=== PATIENT | female | born 1945 | race Caucasian/White ===

== ENCOUNTER → 2016-08-29 | Outpatient (CLI) | payer OTHER | LOC: MMPC 11:11 | DX: F41.9 Anxiety disorder, unspecified (principal); K58.9 Irritable bowel syndrome, unspecified; E03.9 Hypothyroidism, unspecified; K21.9 Gastro-esophageal reflux disease without esophagitis; M81.0 Age-related osteoporosis without current pathological fracture; E78.5 Hyperlipidemia, unspecified | CPT/HCPCS: 99213; G0463 ==

== ENCOUNTER 2016-11-05 18:17 | Emergency (ER) | payer OTHER ==
[2016-11-05 18:34] VITALS: RESP 18; TEMP 98.1
[2016-11-05] MEDS ORDERED: NORMAL SALINE 10 ML SYRINGE FLUSH IVP PRN (18:45)
[2016-11-05] MEDS ORDERED: Sodium Chloride 0.9% 1,000 ML PRIMARY IV ONE (18:45)
[2016-11-05 18:54] LABS: BILIRUBIN,URINE NEGATIVE (NEG); CLARITY,URINE TURBID (CLEAR); COLOR,URINE RED; GLUCOSE, URINE (UA) NEGATIVE (NEG); NITRATE,URINE NEGATIVE (NEG); OCCULT BLOOD,URINE LARGE (NEG); PH,URINE 5.5 (5.0-8.5); PROTEIN,URINE >300 mg/dl (NEG); URINE SAMPLE TYPE VOIDED SPECIMEN; UROBILINOGEN,URINE 0.2 EU/dL (0.2)
[2016-11-05 18:55] LABS: BACTERIA,URINE MANY; RBC,URINE >100 /hpf; SQUAMOUS EPITHELIAL CELL,UR RARE
[2016-11-05 19:02] LABS: BASOPHILS # (AUTO) 0.02 10*3/UL; BASOPHILS % (AUTO) 0.3 % (0-1); EOSINOPHILS % (AUTO) 1.3 % (0-8); HEMATOCRIT 38.2 % (37.0-47.0); LYMPHOCYTES # (AUTO) 2.07 10*3/uL; MEAN CORPUSCULAR HEMOGLOBIN 31.5 PG (27-31); MEAN PLATELET VOLUME 9.8 FL (7.4-12.2); MONOCYTES # (AUTO) 0.53 10*3/UL (0.3-0.8); MONOCYTES % (AUTO) 6.6 % (5-15); NEUTROPHILS # (AUTO) 5.26 10*3/UL; NEUTROPHILS % (AUTO) 65.6 % (50-80); RED BLOOD COUNT 4.13 10^6/uL (4.20-5.40)
[2016-11-05 19:06] LABS: PLATELET MORPHOLOGY COMMENT NORMAL MORPHOLOGY (NORM); RBC MORPHOLOGY COMMENT NORMAL MORPHOLOGY (NORM); WBC MORPHOLOGY COMMENT NORMAL MORPHOLOGY (NORM)
[2016-11-05 19:11] LABS: CALCIUM 9.1 mg/dL (8.7-10.7); SERUM ALBUMIN 4.2 g/dL (3.5-4.8)
--- NOTE | 2016-11-05 20:19 | DI ---
CT ABDOMEN SCAN WITH IV CONTRAST, 11/05/2016 6:46 PM : Clinical History: Abdominal pain. Hematuria. Previous Exam: 02/13/2016. Scans are performed from the lower lung bases through the liver and kidneys with IV contrast. 70 ml o f Isovue 300 was injected IV. No oral or rectal contrast was ordered. The lung bases are clear. There is fatty infiltration of the liver. The patient is status post cholec ystectomy. The spleen and pancreas are normal. The left adrenal gland has 2 small 10 mm nodules that were present on the previous exam and have not changed. The right adrenal gland is unchanged in size and overall appearance. Portions of the upper part of the right adrenal gland are calcified. The bulk of the tissue is of fat density indicating this is a lipid rich tumor and most likely benign. This l esion measures 20 x 30 x 31 mm and this represents the identical measurements obtained on the previou s study. Both kidneys are normal in size, shape, position and contour. There is no hydronephrosis or hydroureter. No left renal or ureteral calculi are present. There is a 2-3 mm nonobstructing calculus in the a lower pole calyx of the right kidney and this has not changed. There is no right ureteral c alculus. There are no abnormal retrocrural or periaortic nodes. No ascites is present. READIN. There is a nonobstructing 2-3 mm calculus in a lower pole calyx of the right kidney, unchanged fr om the previous study. There is no left renal calculus or calculi in either ureter. No hydronephrosis or hydroureter is present. 2. 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 3. Fatty infiltration of the liver. CT PELVIS SCAN WITH IV CONTRAST, 11/05/2016 6:46 PM: Clinical History: See above. Previous Exam: 02/13/2016. Scans are performed from just superior to the umbilicus to the symphysis pubis with IV contrast. This is the same bolus of contrast used for the CT scans of the abdomen. Scans through the lower abdomen and pelvis show no masses or abnormal fluid collections. There is no adenopathy. The appendix is normal and it is in a retrocecal position. The small bowel, terminal ileu m, and ileocecal valve are normal. The colon is also normal. There are no hernias. The uterus and the left ovary are atrophic but normal. The right ovary has a cystic lesion measuring about 20 mm in edel meter and this was present on the previous study and has not changed. READING: There is a 20 mm cystic lesion of the right ovary, most likely an ovarian cyst. It has not changed. T he remainder of the study is normal.
[2016-11-05] MEDS ORDERED: CIPROFLOXACIN 500 MG TABLET PO ONE (20:32)
--- NOTE | 2016-11-05 21:45 | PDOC ---
Female Problem HPI - General Chief Complaint: Genitourinary Complaint Stated Complaint: Urine Concerns Date Seen by Provider: 11/05/16 Time Seen by Provider: 18:35 Source: POSITIVE: Patient Exam Limitations: POSITIVE: No limitations Nurse's Notes Reviewed & Considered: Yes - History of Present Illness Initial Comments: The patient is a 71-year-old female. She states that this afternoon she developed hematuria along with some associated urinary urgency and frequency. She also has a vague discomfort in the left lower abdomen. No fevers or chills. No back pain. No nausea, vomiting, diarrhea, melena. No known bleeding disorders. Patient states she was diagnosed with breast cancer in 1990. She's had a cholecystectomy and hernia repair Body Location Affected: REPORTS: Other (Hematuria) Timing: REPORTS: Abrupt Duration: 4-6 hours Severity: Moderate Quality: REPORTS: Other (Urinary frequency and urgency; some vague discomfort left lower abdomen) Context: DENIES: Frequent Bathing, Poor Hygiene, Frequent Netarts, Known STD Exposure, Unknown STD Exposure, Possible STD Exposure, Multiple Partners, Known , Recent Vaginal Delivery, Recent Delivery, Recent Miscarriage, Recent Trauma, Recent Surgery, Other Location of Pain: DENIES: Right, Left, Breast Pain, Abdominal Pain, Pelvic Pain , Pelvic Cramping, Pelvic Pressure, Burning, Sharp, Vulvar Pain, Vaginal Pain, Low Back Pain, Flank Pain, Shoulder Pain Vaginal Bleeding: DENIES: Abnormal Bleeding, More Severe Than Periods, Heavier Than Periods, Similar to Periods, County Supervisor Than Periods, Spotting, Passing Clots , Passing Tissue, Other : REPORTS: Post-Menopausal Urinary Symptoms: REPORTS: Blood in Urine (Gross hematuria), Discomfort w/ Urination Discharge: DENIES: Vaginal Discharge, Vag Fluid Leak- , Breast Discharge, Other Similar Symptoms Previously: No Recent Care Received: REPORTS: Denies Any Prior Injuries Related to Current Complaint?: Yes - Patient Home Medications Home Medications: Home Medications Multivitamin [Daily Vitamin] 1 tab ORAL QD tab 06/15/13 Levothyroxine Sodium 1 tab ORAL QD #90 tab 08/22/15 Atorvastatin Calcium [Lipitor] 1 tab PO QD #90 tab 01/18/16 Cholecalciferol (Vitamin D3) [Vitamin D3] 1 cap PO QD #30 cap 03/04/16 Pantoprazole Sodium 1 tab PO QD #30 tab 12/05/16 Ciprofloxacin/Ciprofloxa HCl [Ciprofloxacin Er 500 Mg Tablet] 500 mg PO Q12H # 19 tbmp.24hr 11/05/16 Simethicone [Gas-X] 80 mg PO PRN 11/05/16 - Patient Allergies Allergies/Adverse Reactions: Allergies Allergy/AdvReac Type Severity Reaction Status Date / Time oxycodone Allergy Severe HIVES Verified 11/05/16 18:31 hydrocodone AdvReac Severe Abdominal Verified 11/05/16 18:31 pain, vomiting codeine AdvReac Intermediate NAUSEA Verified 11/05/16 18:31 Past Medical History - heen HEENT History: Other (please comment) Additional HEENT History: LEFT EYE HAS FLOATERS. 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 Cardiovascular History: Hyperlipidemia Respiratory History: Denies History Gastrointestinal History: GERD, Irritable Bowel Syndrome Genitourinary History: Denies History Endocrine History: Hypothyroidism Musculoskeletal History: Osteoporosis, Back Pain Prosthesis or Implant: No Neurological History: Denies History Blood Disorders: Denies History Psychiatric History: OCD History of Sexually Transmitted Diseases: No Female Reproductive History: Denies History Obstetrical History: Denies History Cancer History: Breast Cancer Treatment / Date(s) of Treatment: BREAST CA 1990/DOUBLE MASTECTOMY WITH CHEMO X 6 MONTHS In Past Year Been Physically Harmed or Verbally Threatened: No History of MDRO: No History of Other Communicable Diseases: No Tobacco Use: Never Smoker Alcohol Use: None Substance Use Type: None Previous Surgical History: Yes Type / Date of Surgery: LIPOMA EXCISED RIGHT SHOULDER/ TONY/ RIGHT INGUINAL HERNIA/ BILAT RADICAL MASTECTOMY/ RIGHT KNEE SCOPE X 2/ BILAT HAMMER TOES/ TUBAL / L 5th TOE AMPUTATED Anesthesia Reactions: No Malignant Hyperthermia: No Significant Family History: Heart disease, Cancer, Diabetes, Hypertension Past Medical History Reviewed: Reviewed - No Changes ROS - Limitations ROS Limitations: No Limitations Constitution: REPORTS: Denies Symptoms Cardiovascular: REPORTS: Denies Cardiac Symptoms Respiratory: REPORTS: Denies Resp Symptoms Neurological: REPORTS: Denies Neuro Symptoms Gastrointestinal: REPORTS: Denies GI Symptoms Endocrine: REPORTS: Denies Symptoms Musculoskeletal: REPORTS: Denies MS Symptoms Genitourinary: REPORTS: Hematuria Eyes: REPORTS: Denies Symptoms ENT: REPORTS: Denies Symptoms Skin: REPORTS: Denies Skin Symptoms Lympathic: REPORTS: Denies Lympathic Symptoms Immunologic: POSITIVE: Denies Symptoms Psychiatric: POSITIVE: Denies Psych Symptoms Female Genitourinary Exam - General Appearance General Appearance: POSITIVE: Alert, Cooperative, No Acute Distress, No Evidence of Trauma - Neck Neck: POSITIVE: Normal Inspection, No Apparent Injury - Respiratory Respiratory: POSITIVE: No Respiratory Distress, Breath Sounds Normal, Chest Non- Tender - Cardiovascular Cardiovascular: POSITIVE: Regular Rate and Rhythm, Heart Sounds Normal, Equal Pulses, Strong Pulses Peripheral Pulses: Radial (R): 2+, Radial (L): 2+ - Abdomen Abdomen: POSITIVE: Soft, Normal Bowel Sounds, Non-Tender, No Distention, No Organomegaly - Back Back: POSITIVE: Normal Inspection. 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 Lab Results Reviewed: Yes Lab Results:: Laboratory Results 11/05/16 11/05/16 11/05/16 Range/Units 18:54 18:59 19:15 WBC 8.00 (4.8-10.8) 10^3/uL RBC 4.13 L (4.20-5.40) 10^6/uL Hgb 13.0 (12.0-16.0) g/dL Hct 38.2 (37.0-47.0) % MCV 92.5 (81-99) FL MCH 31.5 H (27-31) PG MCHC 34.0 (33-37) g/dL RDW Std Deviation 42.3 (39-50) fL RDW Coeff of Diana 12.9 (11.5-14.5) % Plt Count 246 (140-350) 10*3/uL MPV 9.8 (7.4-12.2) FL Immature Gran % (Auto) 0.3 (0-5) % Neut % (Auto) 65.6 (50-80) % Lymph % (Auto) 25.9 (10-50) % [place] % (Auto) 6.6 (5-15) % Eos % (Auto) 1.3 (0-8) % Baso % (Auto) 0.3 (0-1) % Immature Gran # (Auto) 0.02 10*3/UL Neut # (Auto) 5.26 10*3/UL Lymph # (Auto) 2.07 10*3/uL [place] # (Auto) 0.53 (0.3-0.8) 10*3/UL Eos # (Auto) 0.10 10*3/UL Baso # (Auto) 0.02 10*3/UL WBC Morphology Comment Normal morphology (NORM) Plt Morphology Comment Normal morphology (NORM) RBC Morph Comment Normal morphology (NORM) PT 10.0 (9.7-11.4) secs INR 0.97 (0.00-5.90) N/A APTT 24.3 (22.6-31.3) SECS Sodium 142 (135-145) meq/L Potassium 3.5 L (3.8-5.2) meq/L Chloride 107 (98-112) meq/L Carbon Dioxide 24 (23-33) meq/L Anion Gap 11 (5-20) BUN 18 (7-22) mg/dL Creatinine 1.0 (0.50-1.20) mg/dL Estimated GFR 55 (>60 ml/min/1.73m(2)) BUN/Creatinine Ratio 18.00 (6-20) Glucose 119 H (78-110) mg/dL Calculated Osmolality 296.0 H (267-292) mOsm/kg Calcium 9.1 (8.7-10.7) mg/dL Total Bilirubin 0.5 (0.3-1.2) mg/dL AST 25 (8-39) IU/L ALT 39 (9-52) IU/L Alkaline Phosphatase 93 (38-126) IU/L Total Protein 7.2 (6.1-8.0) g/dL Albumin 4.2 (3.5-4.8) g/dL Globulin 3.0 (2.50-4.10) g/dL Albumin/Globulin Ratio 1.40 (1.3-2.0) mg/g Ur Collection Type Voided specimen Urine Color Red Urine Clarity Turbid (CLEAR) Urine pH 5.5 (5.0-8.5) Ur Specific Reading 1.025 (1.005-1.030) Urine Protein >300 (NEG) mg/dl Urine Glucose (UA) Negative (NEG) mg/dL Urine Ketones Trace (NEG) Urine Occult Blood Large H (NEG) Urine Nitrate Negative (NEG) Urine Bilirubin Negative (NEG) Urine Urobilinogen 0.2 (0.2) EU/dL Ur Leukocyte Esterase Negative (NEG) Urine RBC >100 (NONE) /hpf Urine WBC None (NONE) Ur Squamous Epith Cells Rare (NONE) Ur Renal Epithelial Cell None (NONE) Urine Crystals None Urine Bacteria Many (NONE) Urine Casts None (NONE) Urine Mucus None (NONE) Urine Trichomonas None (NONE) Urine Yeast None (NONE) Ur Culture Indicated? Culture set - Patient's Progress Pain Medication Addressed: POSITIVE: Not Applicable School/Work Release Addressed: POSITIVE: Not Applicable Re-Examine Time: 20:20 Status: POSITIVE: Unchanged, Re-Examined - Consult Counseled: POSITIVE: Patient, Family (), RE: Lab Results, RE: Radiology Results, RE: DX, RE: Need for F/U Patient Care Time - Estimated PCT Patient Care Time (In Minutes): 50 Vital Signs - Recent Vital Signs Vital Signs: Vital Signs (Last 8 hours) Temp Pulse Resp BP Pulse Ox 11/05/16 18:17 98.1 F 89 18 150/104 94 - VS Reviewed Vital Signs Reviewed: Yes Discharge Clinical Impression: Hematuria Discharge Disposition: Discharged to Home Condition: Stable Prescriptions / Orders: Ciprofloxacin/Ciprofloxa HCl [Ciprofloxacin Er 500 Mg Tablet] 500 mg PO Q12H # 19 tbmp.24hr Patient Instructions Given at Discharge: Hematuria (ED) Additional Instructions: I am not completely sure why you are having blood in your urine. CT scan of your abdomen and pelvis showed no stones or kidney abnormalities. You may have a urinary tract infection causing blood in your urine, however, your urinalysis shows no white blood cells, and only red blood cells. Therefore, we must consider other sources. My main concern is that you might have a bladder tumor , causing your bloody urine. Please take Cipro, one every 12 hours, at least until the blood cultures are returned, which will cover you for bladder infections. Please follow-up with Dr. Cortez, within the next few days and he will probably want you to see a urologist to have a cystoscopy, which is a procedure where a urologist uses nystatin treatment to actually look inside the bladder to look for lesions. Return here anytime if condition worsens. Increase fluids. Follow Up With: NONE,NONE [Primary Care Provider] - (Follow-up with Dr. Cortez for probable urological consultation. Instructions and medications as above. Return here as necessary.)
== END 2016-11-05 21:00 | disposition home or self-care (01) ==
LOC: ER 18:17
DX: R31.9 Hematuria, unspecified (principal); R10.32 Left lower quadrant pain
CPT/HCPCS: 74177; 80053; 81001; 81003; 85025; 85610; 85730; 87088; 99283

== ENCOUNTER 2016-11-09 19:45 | Emergency (ER) | payer OTHER ==
[2016-11-09] MEDS ORDERED: Sodium Chloride 0.9% 1,000 ML PRIMARY IV ONE (20:14)
[2016-11-09] MEDS ORDERED: HYDROmorphone 2 MG/1 ML IVP ONE (20:14)
[2016-11-09] MEDS ORDERED: NORMAL SALINE 10 ML SYRINGE FLUSH IVP PRN (20:14)
[2016-11-09 20:45] LABS: BILIRUBIN,URINE SMALL (NEG); CLARITY,URINE CLOUDY (CLEAR); COLOR,URINE RED; GLUCOSE, URINE (UA) NEGATIVE (NEG); NITRATE,URINE NEGATIVE (NEG); OCCULT BLOOD,URINE LARGE (NEG); PH,URINE 5.5 (5.0-8.5); PROTEIN,URINE 100 mg/dl (NEG); URINE SAMPLE TYPE CLEAN CATCH URINE; UROBILINOGEN,URINE 0.2 EU/dL (0.2)
[2016-11-09 20:46] LABS: BASOPHILS # (AUTO) 0.02 10*3/UL; BASOPHILS % (AUTO) 0.3 % (0-1); EOSINOPHILS % (AUTO) 2.6 % (0-8); HEMATOCRIT 35.9 % (37.0-47.0); HEMOGLOBIN 12.3 g/dL (12.0-16.0); LYMPHOCYTES # (AUTO) 1.96 10*3/uL; MEAN CORPUSCULAR HEMOGLOBIN 31.5 PG (27-31); MEAN CORPUSCULAR HGB CONC 34.3 g/dL (33-37); MONOCYTES # (AUTO) 0.64 10*3/UL (0.3-0.8); MONOCYTES % (AUTO) 8.3 % (5-15); NEUTROPHILS # (AUTO) 4.87 10*3/UL; NEUTROPHILS % (AUTO) 63.1 % (50-80); PLATELET MORPHOLOGY COMMENT NORMAL MORPHOLOGY (NORM); RBC MORPHOLOGY COMMENT NORMAL MORPHOLOGY (NORM); RED BLOOD COUNT 3.91 10^6/uL (4.20-5.40); WBC MORPHOLOGY COMMENT NORMAL MORPHOLOGY (NORM)
[2016-11-09 20:53] LABS: BUN/CREATININE RATIO 13.33 (6-20); CALCIUM 8.9 mg/dL (8.7-10.7)
[2016-11-09 20:54] LABS: BACTERIA,URINE FEW; RBC,URINE >100 /hpf; WBC,URINE 0-1
[2016-11-09 20:55] LABS: URINE CRYSTALS MODERATE
[2016-11-09 21:22] VITALS: TEMP 98.6
[2016-11-09] MEDS ORDERED: ONDANSETRON 4 MG/2 ML VIAL ONE (21:26)
[2016-11-09] MEDS: ONDANSETRON 4 MG/2 ML VIAL IVP ONE ×2 (21:30→22:14)
[2016-11-09 21:57] VITALS: RESP 22
--- NOTE | 2016-11-09 22:16 | DI ---
HISTORY: Left lower abdominal pain. COMPARISON STUDIES: 11/05/16. TECHNIQUE: Contiguous 3 mm axial images were obtained from the upper abdomen through the pelvis witho ut contrast. 391 images. FINDINGS: LUNG BASE: There is mild bilateral dependent atelectasis. No evidence of mass or airspace consolidati on. No pleural effusions. Coronary artery calcifications present. ABDOMEN: The liver and spleen are unremarkable. No liver masses seen. The gallbladder is absent. Garrett creas and left adrenal gland appear normal. The right adrenal gland is unchanged from prior, enlarged with multiple calcifications. Normal appearing small bowel. A few scattered colonic diverticula noted. No pericolonic or small bow el mesenteric inflammatory fat stranding. No secondary signs of appendicitis. No evidence of pneumope ritoneum, free fluid or of peritoneal abscess. Multiple renal lesions better evaluated on the comparison CT, some of which are too small to adequate ly characterize, likely representing simple renal cysts, though incompletely evaluated on this study. There is a tiny 4 mm distal left ureterolith, with mild asymmetric enlargement of the left ureter. The ureterolith has slightly advanced further along the ureter compared to the prior study from . No perinephric stranding or enlargement of the proximal collecting system. The right and left kid mere are otherwise unremarkable. PELVIS: No suspicious pelvic or abdominal adenopathy. VESSELS: Moderate aortoiliac atherosclerotic vascular disease is present without evidence of aneurysm al dilation. MUSCULOSKELETAL: Bone mineralization is adequate. No evidence of acute fracture or spinal canal sten osis. IMPRESSION: 1. Tiny 4 mm distal left ureterolith, just above the UVJ, with minimal asymmetric enlargement of the left ureter and no other signs of obstructive uropathy. 2. Multiple renal lesions better evaluated on the comparison CT, some of which are too small to adequ ately characterize, though likely representing simple renal cysts. Consider routine renal US if persi stent clinical concern. NOTE: The above findings were discussed with Dr. Strange at approximately 7 pm HST. The finding of th e ureterolith was not initially included in the original report and was noticed after further history was obtained regarding the patient's hematuria.
[2016-11-09] MEDS ORDERED: LORazepam 2 MG/1 ML VIAL IVP ONE (22:53)
--- NOTE | 2016-11-09 23:27 | PDOC ---
Abdomen/Flank HPI - General Chief Complaint: Abdomen Pain Stated Complaint: LEFT LOWER ABD. PAIN Date Seen by Provider: 11/09/16 Time Seen by Provider: 20:13 Source: POSITIVE: Patient, Spouse, Old records Exam Limitations: POSITIVE: No limitations Nurse's Notes Reviewed & Considered: Yes - History of Present Illness Initial Comments: Patient is a 71-year-old female. She was seen by myself in the emergency room on 11/05/2016 with complaints of hematuria with associated urinary urgency and frequency and some vague discomfort in the left lower abdomen. Evaluation at that time included a CT scan of the abdomen and pelvis which was read as essentially normal by our radiologist. Laboratory evaluation was normal except for gross hematuria. Urine cultures have since been negative. Patient was discharged to home to arrange for follow-up urological evaluation with her primary care provider. This evening the patient again experienced some gross hematuria and more severe left lower abdominal pain. Her therefore brings her once again into the emergency room. Body Location Affected: REPORTS: Abdomen Timing: REPORTS: Abrupt Duration: 1 hour Severity: Moderate Quality: REPORTS: "Pain" (Left lower abdomen) Abdominal Pain Onset Location: REPORTS: LLQ Abdominal Pain Radiation: REPORTS: No radiation Context: REPORTS: None Modifying Factors: improves with: Nothing Associated Symptoms: REPORTS: Other (Hematuria) Similar Symptoms Previously: Yes (on 11/05/2016) Recent Care Received: REPORTS: Recently Seen, Treated by MD (As above) Any Prior Injuries Related to Current Complaint?: No - Patient Home Medications Home Medications: Home Medications Multivitamin [Daily Vitamin] 1 tab ORAL QD tab 06/15/13 Levothyroxine Sodium 1 tab ORAL QD #90 tab 08/22/15 Atorvastatin Calcium [Lipitor] 1 tab PO QD #90 tab 01/18/16 Cholecalciferol (Vitamin D3) [Vitamin D3] 1 cap PO QD #30 cap 03/04/16 Pantoprazole Sodium 1 tab PO QD #30 tab 07/29/16 Ciprofloxacin/Ciprofloxa HCl [Ciprofloxacin Er 500 Mg Tablet] 500 mg PO Q12H # 19 tbmp.24hr 11/05/16 Simethicone [Gas-X] 80 mg PO PRN 11/05/16 Ketorolac Tromethamine [Toradol] 10 mg PO Q6H PRN #15 tablet 11/09/16 Tamsulosin HCl [Flomax] 0.4 mg PO DAILY #10 cap 11/09/16 - Patient Allergies Allergies/Adverse Reactions: Allergies Allergy/AdvReac Type Severity Reaction Status Date / Time oxycodone Allergy Severe HIVES Verified 11/05/16 18:31 hydrocodone AdvReac Severe Abdominal Verified 11/05/16 18:31 pain, vomiting codeine AdvReac Intermediate NAUSEA Verified 11/05/16 18:31 Past Medical History - heen HEENT History: Other (please comment) Additional HEENT History: LEFT EYE HAS FLOATERS. 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 Cardiovascular History: Hyperlipidemia Respiratory History: Denies History Gastrointestinal History: GERD, Irritable Bowel Syndrome Genitourinary History: Denies History Endocrine History: Hypothyroidism Musculoskeletal History: Osteoporosis, Back Pain Prosthesis or Implant: No Neurological History: Denies History Blood Disorders: Denies History Psychiatric History: OCD History of Sexually Transmitted Diseases: No Female Reproductive History: Breast Surgery (include type of surgery in additional comments) Additional Female Reproductive History: DOUBLE MASTECTOMY Obstetrical History: Denies History Cancer History: Breast Cancer Treatment / Date(s) of Treatment: BREAST CA 1990/DOUBLE MASTECTOMY WITH CHEMO X 6 MONTHS In Past Year Been Physically Harmed or Verbally Threatened: No History of MDRO: No History of Other Communicable Diseases: No Tobacco Use: Never Smoker Alcohol Use: None Substance Use Type: None Previous Surgical History: Yes Type / Date of Surgery: LIPOMA EXCISED RIGHT SHOULDER/ TONY/ RIGHT INGUINAL HERNIA/ BILAT RADICAL MASTECTOMY/ RIGHT KNEE SCOPE X 2/ BILAT HAMMER TOES/ TUBAL / L 5th TOE AMPUTATED Anesthesia Reactions: No Malignant Hyperthermia: No Significant Family History: Heart disease, Cancer, Diabetes, Hypertension Past Medical History Reviewed: Reviewed - No Changes ROS - Limitations ROS Limitations: No Limitations Constitution: REPORTS: Denies Symptoms Cardiovascular: REPORTS: Denies Cardiac Symptoms Respiratory: REPORTS: Denies Resp Symptoms Neurological: REPORTS: Denies Neuro Symptoms Gastrointestinal: REPORTS: Abdominal Pain (Left lower quadrant) Endocrine: REPORTS: Denies Symptoms Musculoskeletal: REPORTS: Denies MS Symptoms Genitourinary: REPORTS: Hematuria Eyes: REPORTS: Denies Symptoms ENT: REPORTS: Denies Symptoms Skin: REPORTS: Denies Skin Symptoms Lympathic: REPORTS: Denies Lympathic Symptoms Immunologic: POSITIVE: Denies Symptoms Psychiatric: POSITIVE: Denies Psych Symptoms Abdominal/Flank Pain PE - General Appearance General Appearance: POSITIVE: Alert, Cooperative, No Evidence of Trauma, Moderate Distress - HEENT HEENT: POSITIVE: Head Inspection Nml, Eyes Inspection Nml, Ears Inspection Nml, Nose Inspection Nml, Oral/Dental Inspect. Nml, Pharynx Inspect. Nml, PERRL, EOMI - Neck Neck: POSITIVE: Normal Inspection, No Apparent Injury - Respiratory Respiratory: POSITIVE: No Respiratory Distress, Breath Sounds Normal, Chest Non- Tender - Cardiovascular Cardiovascular: POSITIVE: Regular Rate and Rhythm, Heart Sounds Normal, Equal Pulses, Strong Pulses Peripheral Pulses: Radial (R): 2+, Radial (L): 2+ - Chest Chest: POSITIVE: Non Tender - Abdomen Abdomen: Soft: (All Quadrants), Normal Bowel Sounds: (All Quadrants), Denies Tenderness: (RUQ), (LUQ), (RLQ), No Splenomegaly: (All Quadrants), No Hepatomegaly: (All Quadrants), No Guarding: (All Quadrants), No Rebound: (All Quadrants), No Palpable Pulse: (All Quadrants), No Palpabale Mass: (All Quadrants), No Distention: (All Quadrants), No Rigidity: (All Quadrants), Tenderness Noted: (LLQ) - Back Back: POSITIVE: Normal Inspection. NEGATIVE: CVA Tenderness (R), CVA Tenderness (L) - Skin Skin: POSITIVE: Intact, Normal For Race, Warm, Dry, No Rash - Extremities Extremity: Non-Tender: (All Extremities), Normal ROM: (All Extremities), Normal Inspection: (All Extremities) - Neurological Neurological: POSITIVE: Oriented X3, client care consultant Normal As Tested, Motor Normal, Sensation Normal, 5, 6 - Psychological Psychiatric: POSITIVE: Affect Appropriate, Mood Appropriate Images - Complete Complete: 1 - Area of described pain/discomfort Abdomen Progress - Results Reviewed by me Xrays/CTs/US Reviewed by me: Yes Discussed with Radiologist: Yes Radiology Findings: CT scan abdomen and pelvis without contrast is read by [facility] radiologist as showing multiple renal small lesions that have the appearance of benign cysts. This was not reported on the CT scan with contrast which was done 05 November. Current radiologist compared today's noncontrast study with the contrast study down on 05 November. I called the radiologist and discussed this discrepancy with him. [facility] radiologist says these are small cystic lesions that have a very benign appearance. [facility] that I ordered a noncontrast study thinking that this might facilitate the identification of a ureterolith. The radiologist then reviewed his original study and states that he feels or might possibly be a small ureterolith near the ureterovesical junction with no hydroureter or hydronephrosis; alternatively, this might be a small phlebolith. Lab Results Reviewed: Yes Lab Results:: Laboratory Results 11/09/16 11/09/16 Range/Units 20:40 21:18 WBC 7.71 (4.8-10.8) 10^3/uL RBC 3.91 L (4.20-5.40) 10^6/uL Hgb 12.3 (12.0-16.0) g/dL Hct 35.9 L (37.0-47.0) % MCV 91.8 (81-99) FL MCH 31.5 H (27-31) PG MCHC 34.3 (33-37) g/dL RDW Std Deviation 41.2 (39-50) fL RDW Coeff of Diana 12.8 (11.5-14.5) % Plt Count 257 (140-350) 10*3/uL MPV 10.0 (7.4-12.2) FL Immature Gran % (Auto) 0.3 (0-5) % Neut % (Auto) 63.1 (50-80) % Lymph % (Auto) 25.4 (10-50) % Kimball % (Auto) 8.3 (5-15) % Eos % (Auto) 2.6 (0-8) % Baso % (Auto) 0.3 (0-1) % Immature Gran # (Auto) 0.02 10*3/UL Neut # (Auto) 4.87 10*3/UL Lymph # (Auto) 1.96 10*3/uL Kimball # (Auto) 0.64 (0.3-0.8) 10*3/UL Eos # (Auto) 0.20 10*3/UL Baso # (Auto) 0.02 10*3/UL WBC Morphology Comment Normal morphology (NORM) Plt Morphology Comment Normal morphology (NORM) RBC Morph Comment Normal morphology (NORM) PT 10.3 (9.7-11.4) secs INR 1.00 (0.00-5.90) N/A APTT 25.0 (22.6-31.3) SECS Sodium 141 (135-145) meq/L Potassium 3.7 L (3.8-5.2) meq/L Chloride 108 (98-112) meq/L Carbon Dioxide 22 L (23-33) meq/L Anion Gap 11 (5-20) BUN 16 (7-22) mg/dL Creatinine 1.2 (0.50-1.20) mg/dL Estimated GFR 44 (>60 ml/min/1.73m(2)) BUN/Creatinine Ratio 13.33 (6-20) Glucose 106 (78-110) mg/dL Calculated Osmolality 292.0 (267-292) mOsm/kg Calcium 8.9 (8.7-10.7) mg/dL Total Bilirubin 0.4 (0.3-1.2) mg/dL AST 27 (8-39) IU/L ALT 37 (9-52) IU/L Alkaline Phosphatase 98 (38-126) IU/L Total Protein 6.8 (6.1-8.0) g/dL Albumin 4.0 (3.5-4.8) g/dL Globulin 2.8 (2.50-4.10) g/dL Albumin/Globulin Ratio 1.40 (1.3-2.0) mg/g Ur Collection Type Clean catch urine Urine Color Red Urine Clarity Cloudy (CLEAR) Urine pH 5.5 (5.0-8.5) Ur Specific Blodgett 1.020 (1.005-1.030) Urine Protein 100 (NEG) mg/dl Urine Glucose (UA) Negative (NEG) mg/dL Urine Ketones 15 (NEG) Urine Occult Blood Large H (NEG) Urine Nitrate Negative (NEG) Urine Bilirubin Small (NEG) Urine Urobilinogen 0.2 (0.2) EU/dL Ur Leukocyte Esterase Trace (NEG) Urine RBC >100 (NONE) /hpf Urine WBC 0-1 (NONE) Ur Squamous Epith Cells None (NONE) Ur Renal Epithelial Cell None (NONE) Urine Crystals Moderate Urine Bacteria Few (NONE) Urine Casts None (NONE) Urine Mucus Few (NONE) Urine Trichomonas None (NONE) Urine Yeast None (NONE) Ur Culture Indicated? Culture not set - Patient's Progress Pain Medication Addressed: POSITIVE: Yes (Dilaudid 1 mg IV) School/Work Release Addressed: POSITIVE: Not Applicable Re-examine Time: 23:00 Re-Examine Comment: Patient voided shortly after coming to the emergency room and this seemed to relieve her pain considerably. Patient did have some nausea following her pain medication, treated with Zofran. Urine cultures taken on 05 November reviewed; no growth. Re-Examine Time: 23:05 Re-Examine Comment: [place] [facility] [place] in his office this coming Friday. Dr. Sanchez states that if she has difficulty before then she is welcome to call their office. Status: POSITIVE: Improved, Re-Examined - Consult Consult (If Yes, Name of Consulting MD & Time Called): Yes (Dr. Sanchez, urology , [id number]) Consulting MD will see pt:: POSITIVE: In Office Counseled: POSITIVE: Patient, Family, RE: Lab Results, RE: Radiology Results, RE : DX, RE: Need for F/U Patient Care Time - Estimated PCT Patient Care Time (In Minutes): 55 Vital Signs - Recent Vital Signs Vital Signs: Vital Signs (Last 8 hours) Temp Pulse Resp BP Pulse Ox 11/09/16 21:30 87 22 117/58 96 11/09/16 19:47 98.6 F 91 20 115/76 92 - VS Reviewed Vital Signs Reviewed: Yes Discharge Clinical Impression: Abdominal pain, Hematuria of undiagnosed cause, Hematuria Discharge Disposition: Discharged to Home Condition: Good Prescriptions / Orders: Tamsulosin HCl [Flomax] 0.4 mg PO DAILY #10 cap Ketorolac Tromethamine [Toradol] 10 mg PO Q6H PRN #15 tablet PRN Reason: Pain Patient Instructions Given at Discharge: Hematuria (ED), Ureteral Stones (ED) Additional Instructions: Please strain your urine and check for passage of stone. Toradol, one every 6 hours as necessary for pain. Flomax 1 daily. Follow-up with Dr. Silva, urology in [place], Friday. If you have problems, Dr. Sanchez said his clinic would see you Friday. Return here anytime if condition worsens. Follow Up With: SAVI REYNAGA [Primary Care Provider] - (Instructions and medications as above. Follow-up with urology Friday. Return here as necessary.)
[2016-11-09] MEDS ORDERED: TAMSULOSIN 0.4 MG CAPSULE PO ONE (23:41)
[2016-11-09] MEDS ORDERED: KETOROLAC 10 MG TABLET PO SCH (23:45)
[2016-11-09] MEDS ORDERED: Ondansetron ODT Tab 8 MG TAB PO SCH (23:45)
[2016-11-09] MEDS ORDERED: Ondansetron ODT Tab 4 MG TAB PO ONE (23:58)
[2016-11-10] MEDS ORDERED: Ondansetron ODT Tab 4 MG TAB PO SCH (00:01)
== END 2016-11-10 00:12 | disposition home or self-care (01) ==
LOC: ER 19:45
DX: R10.32 Left lower quadrant pain (principal); R31.9 Hematuria, unspecified; Z85.3 Personal history of malignant neoplasm of breast; E78.5 Hyperlipidemia, unspecified
CPT/HCPCS: 36415; 74176; 80053; 81001; 81003; 85025; 85610; 85730; 96361; 96374; 96375; 99283; J1170; J2405; J7030; Q0162

== ENCOUNTER → 2016-11-15 | Outpatient (CLI) | payer OTHER ==
--- NOTE | 2016-11-18 09:00 | DI ---
CT ABDOMEN/PELVIS W/O CONTRAST,11/15/2016 12:41 PM: Clinical History: Left ureteral stone. Previous Exam: November 09, 2016 Findings: Multiple helically acquired CT images are obtained through the abdomen and pelvis without contrast, a nd demonstrate interval advancement of a left distal ureteral stone measuring 5 mm. This has advanced approximately 3 cm, and is now seen at the left ureterovesicular junction. There is still severe lef t hydroureter and moderate left hydronephrosis. There is a stable exophytic simple cyst involving the right kidney. The liver, spleen, adrenals and pancreas are unremarkable. Patient is status post cholecystectomy. Peripheral vascular calcifications are also seen. Impression: Interval advancement of a 5 mm left distal ureteral stone now seen at the left ureterovesicular junct ion.
== END ==
LOC: CT 12:37
PROVIDERS: ATTEND Urology
DX: N13.2 Hydronephrosis with renal and ureteral calculous obstruction (principal); N13.4 Hydroureter
CPT/HCPCS: 74176

== ENCOUNTER → 2017-02-26 | Outpatient (CLI) | payer OTHER ==
[2017-02-26 12:59] LABS: BLOOD UREA NITROGEN 13 mg/dL (7-22); BUN/CREATININE RATIO 14.44 (6-20); CALCIUM 9.2 mg/dL (8.7-10.7); CHOL/HDL RATIO 2.63 RATIO (0-4.0); EST GLOMERULAR FILTRATION > 60 (>60 ml/min/1.73m(2)); HDL CHOLESTEROL 61 mg/dL (40-150); PHOSPHORUS 3.9 mg/dl (2.4-4.3); SERUM CHOLESTEROL 161 mg/dL (120-200)
[2017-02-26 13:15] LABS: VITAMIN D 25-HYDROXY 64.8 NG/ML (30-100)
== END ==
LOC: MOB LAB 11:28
DX: N20.0 Calculus of kidney (principal); E03.9 Hypothyroidism, unspecified; E78.5 Hyperlipidemia, unspecified; E55.9 Vitamin D deficiency, unspecified; M81.0 Age-related osteoporosis without current pathological fracture; K21.9 Gastro-esophageal reflux disease without esophagitis; F41.9 Anxiety disorder, unspecified; Z86.010 Personal history of colon polyps; Z85.3 Personal history of malignant neoplasm of breast
CPT/HCPCS: 36415; 80048; 80061; 82306; 83735; 84100; 84443